=== PATIENT | male | born 1950 | race Caucasian/White ===

== ENCOUNTER → 2025-02-17 12:41 | Outpatient (REF) | payer MEDICARE, SELFPAY ==
--- NOTE | 2025-01-29 07:54 | PN.DIAED02 ---
Referral
DSME Class Series Code: [id number]
Referred For: Diabetes Self-Management Training, Management of Diabetes During , Medical Nutrition Therapy, Self-Blood Glucose Monitoring, Long-Term Complication Instruction, Accute Complication Instruction, Continuous Glucose Monitoring,
Medication management, Care Coordination, Disease Management
PHI Release Authorization Form Signed: Yes
Demographic
Patient's primary language-: Thai (e11.65)
Education: Advanced college degree
Occupation: Vocational/Trade
Hours Worked/Week: 20-40
Shift: Day
- Social
Primary Support Person: Self
Primary Care Takers: Self
Living Arrangements: Self
- Learning Methods
Preferred Method: Hands-on demonstration
Barriers to Learning: None
Glycemic Control
- Blood Glucose Monitoring Assessment
Blood glucose monitoring at home: Yes
Monitor Brands: Other (CGM)
Frequency: >4x per day
Time: fasting, before breakfast, after breakfast, before lunch, after lunch, before dinner, after dinner, bedtime, 12 AM, 3 AM
- Hyperglycemia Assessment
Experiences Hyperglycemia: Yes (FREQUENT THIRST)
Frequency: 1-3x per week
- Hypoglycemia Assessment
Patient carries glucose source: No
Patient experiences hypoglycemia: No
- Blood Glucose Monitoring Results
Source: Other (CGM)
- Hemoglobin A1c
Date: 08/10/24
A1C Percentage (%): 9.7
Medical History of Diabetes
Family Diabetes History: Other (AUNT)
Previous Diabetes Education: No
Previous visit with Dietitian: No
Complications/Comorbidity/Specialist: Heart Disease, Hypertension (Valsartan 80 mg QD, Metoprolol 50 mg QD, Spironolactone 25 mg QD), Hyperlipidemia (Rosuvastatin 10 mg QD), Metabolic (T2D: Glargine 26 units QD, Aspart B 16, L 18, D10)
Measures
- Anthropometrics
Height: 6 ft 1 in
Actual Weight: 218 lb
- Blood Pressure / Pulse
Blood pressure: 110/60
- Diabetes Management
Medical Management for Diabetes: Complete physical exam (12/19/2024), Dental exam (12/10/2020 pending new dentures), Dilated eye exam (01/10/2025)
Self-Care
- Tobacco Usage
Do you now, or have you ever smoked?: Never smoked
- Alcohol & Drugs Usage
Drinks Alcohol: Yes
Amount/day: Social Occasions (4/year)
- Meals & Dining
Meals & Dining: Patient skips meals: Yes, Food Intolerance / Allergy: No, Cultural / Christian Dietary Needs: No
Primary Food Shingle Packer: Self
Primary Quantitative Consultant: Self
Dining Out Frequency: Daily (no kitchen access, eats take out daily)
- Physical Activity
Physical Limitation: No
Patient participates in physical Activity: No (work schedule interferes with time for exercise)
- Patient-Self Assessment
Diabetes Knowledge: Fair
Feelings About Diabetes: Adaptation
General Health: Good
Importance of Health: Extremely
Stress Level: High
Diabetes Interferes With:: Work/school
Barriers to Diabetes Management: Schedule/time
Depression Survey Score: 2
- Diabetes Identification
Carries Diabetes Identification: No
Diabetes Identification Information Provided: Yes
Care Plan
- Education Needs
Patient Education Needs: Diabetes disease process, Chronic complications, Acute complications, Medication, Monitoring, Physical activity, Psychosocial Adjustment, Nutritional management, Goal setting & problem solving
Recommended Diabetes Training Program based on assessment: Outpatient Diabetes Education Program
- Plan of Care
Plan of Care:
01/28/2025
Met with participant today for registration and initiation of Diabetes Self-management. He was previously diagnosed witn prediabetes and was inpatient with [facility] and his glucose reading was 400 mg/dL. He is unsure of his current HbA1c, labs ordered
through his PCP. He has an appointment with [facility] on 01/31/2025.
He currently takes long acting and short acting insulin, wears a CGM. We reviewed his CGM data and his 7 day glucose average is 192, time in range is 59%, and glucose management indicator is 7.7%. I provided education that his glucose average is
elevated, the goals for time in range is >= 70%, and A1c goal is generally less than 7% unless otherwise indicated from provider.
His morning glucose readings are 170-190, he eats twice a day and skips breakfast. He shares an apartment with other men and has limited access to a kitchen, most of his diet is take out. He works long hours and even during breaks he is sedentary
due to work duties. Since his diagnosis he cut out additional sugar, eats more salads, and purchases 'Healthy Choice' meals.
We reviewed complications of diabetes, fasting and 2 hour post prandial glucose goals, signs and symptoms of hyperglycemia, signs and symptoms of hypoglycemia, and hypoglycemia protocol. We discussed exercise recommendations of at least 30 minutes
per day to help lower glucose levels. He will try to fit in exercise throughout his day.
I reviewed and provided diabetes management booklet, insurance billing code and advised he contact his health plan to discuss coverage and cost.
He has phone # for office if additional needs arise prior to class.
--- NOTE | 2025-01-29 09:15 | PN.DIAED04 ---
Education Record
- Education Record
Class Attended: Other
DSME Class Series Code: [id number]
Instructor: Registered Nurse (Destiny Pollock RN)
Pre-Program Knowledge: Needs review / Assistance
Pre-Test Score (%): 79
Goals
- Goal 1
Being Active: Exercise 30 minutes-5 times per week
Goals To Be Evaluated: Exercise 30 mins-5x/week
- Goal 2
Healthy Eating: Make better food choices
Goals To Be Evaluated: Make better food choices
- Goal 3
Monitoring: Follow monitoring schedule
Goals To Be Evaluated: Follow monitoring times
--- NOTE | 2025-02-19 13:11 | PN.DIAED14 ---
This is to notify you that your patient with diabetes, ADELINA LOYA ( 1950), has enrolled in our diabetes self-management classes that are being held at [facility].
These classes will include an introduction to diabetes, diet, medication, exercise and prevention of complications. At the end of our class series, you will receive a report of your patient's participation and progress for your records.
Please contact me at the Diabetes Center, , if there is any particular information regarding your patient that might be helpful to me.
Sincerely,
Dylan BERG-LINDA, [facility]
--- NOTE | 2025-02-19 13:30 | PN.DIAED04 ---
Education Record
- Education Record
Class Attended: Class 1
DSME Class Series Code: [id number]
Instructor: Registered Nurse (Destiny Pollock RN)
Class Curriculum:
Outpatient Diabetes Education Program:
Class 1 (120 minutes)
Describe the diabetes disease process and treatment options
Diabetes management
Develop personal strategies to promote health and behavior change
Integrate psychosocial adjustment for daily living
Monitor blood glucose and other parameters. Interpret and use the results for self-management decision making
Prevent, detect, and treat acute complications
Class Length (mins): 120
Post-Class 1 Test Score (%): 100
== END ==
LOC: DES 12:41
PROVIDERS: ATTENDING PHYSICIAN Family Medicine Sports Medicine
DX: E11.65 Type 2 diabetes mellitus with hyperglycemia (principal)
CPT/HCPCS: 99078

== ENCOUNTER → 2025-02-24 09:49 | Outpatient (REF) | payer MEDICARE, SELFPAY ==
--- NOTE | 2025-02-25 10:04 | PN.DIAED04 ---
Education Record
- Education Record
Class Attended: Class 2
DSME Class Series Code: [id number]
Instructor: Registered Dietitian (Danita Alexander, RD, LDN, CDE)
Class Curriculum:
Outpatient Diabetes Education Program:
Class 2 (120 minutes)
Incorporate nutritional management into lifestyle
Understanding nutritional value
Understanding carbohydrate counting
Class Length (mins): 120
== END ==
LOC: DES 09:49
PROVIDERS: ATTENDING PHYSICIAN Family Medicine Sports Medicine
DX: E11.65 Type 2 diabetes mellitus with hyperglycemia (principal)
CPT/HCPCS: 99078

== ENCOUNTER → 2025-03-03 10:39 | Outpatient (REF) | payer MEDICARE, SELFPAY ==
--- NOTE | 2025-03-05 11:55 | PN.DIAED04 ---
Education Record
- Education Record
Class Attended: Class 3
DSME Class Series Code: [id number]
Instructor: Registered Dietitian (Danita Alexander, RD, LDN, CDE)
Class Curriculum:
Outpatient Diabetes Education Program:
Class 3 (120 minutes)
Incorporate nutritional management into lifestyle
Class Length (mins): 120
Post-Class 2 & 3 Test Score (%): 81
== END ==
LOC: DES 10:39
PROVIDERS: ATTENDING PHYSICIAN Family Medicine Sports Medicine
DX: E11.65 Type 2 diabetes mellitus with hyperglycemia (principal)
CPT/HCPCS: 99078

== ENCOUNTER → 2025-03-10 09:11 | Outpatient (REF) | payer MEDICARE, SELFPAY ==
--- NOTE | 2025-03-12 11:40 | PN.DIAED04 ---
Education Record
- Education Record
Class Attended: Class 4
DSME Class Series Code: [id number]
Instructor: Nurse Practitioner (MORENA Moreno)
Class Curriculum:
Outpatient Diabetes Education Program:
Class 4 (120 minutes)
Develop personal strategies to promote health and behavior change
Incorporate physical activity into lifestyle
Utilize medications safety for maximum therapeutic effectiveness
Understand different medication/insulin mechanism of action
Preparing for travel
Class Length (mins): 120
Post-Class 4 Test Score (%): 100
== END ==
LOC: DES 09:11
PROVIDERS: ATTENDING PHYSICIAN Family Medicine Sports Medicine
DX: E11.65 Type 2 diabetes mellitus with hyperglycemia (principal)
CPT/HCPCS: 99078

== ENCOUNTER → 2025-03-17 09:24 | Outpatient (REF) | payer MEDICARE, SELFPAY ==
--- NOTE | 2025-03-19 12:35 | PN.DIAED04 ---
Education Record
- Education Record
Class Attended: Class 5
DSME Class Series Code: [id number]
Instructor: Registered Nurse (Destiny Pollock RN)
Class Curriculum:
Outpatient Diabetes Education Program:
Class 5 (120 minutes)
Prevent, detect, and treat acute complications
Prevent, detect, and treat chronic complications through risk reduction
Develop personal strategies to address psychosocial issues and concerns
Development of diabetes self-management support plan
Letter to physician with DSMS plan attached sent
Class Length (mins): 120
Post-Program Knowledge: Demonstrates competency
Post-Test Score (%): 88
Post-Program Assessment
- Post-Program Assessment
Actual Weight: 218 lb
Blood pressure: 130/70
Post-Program Depression Survey Score: 6
Reviewing Previous Goals?: Yes
Pre-Program Depression Survey Score: 2
- Goals 1 Evaluation
Goals To Be Evaluated: Exercise 30 mins-5x/week
- Goals 2 Evaluation
Goals To Be Evaluated: Make better food choices
- Goals 3 Evaluation
Goals To Be Evaluated: Follow monitoring times
--- NOTE | 2025-03-19 12:35 | PN.DIAED16 ---
This is to notify you that your patient with diabetes, ADELINA LOYA ( 1950), has attended the entire series of Diabetes Self-Management Education Classes.
Class 1 (120 minutes): Diabetes Overview - monitoring, stress/psychosocial adjustment, support, goal setting
Class 2 (120 minutes): Meal Planning - serving sizes, menu plans
Class 3 (120 minutes): Introduction to Carbohydrate Counting, Analyzing Food Labels
Class 4 (120 minutes): Medication, Exercise and Activity
Class 5 (120 minutes): Sick Day Management, Strategies to Reduce Complications, Problem Solving, Resources
The following behavioral goals were identified:
Exercise 30 mins-5x/week
Make better food choices
Follow monitoring times
A follow-up call will be made within three to six months to evaluate attainment of these goals and to check post-program Hemoglobin A1c and overall progress. All class participants are encouraged to contact me if I can be any further assistance in
learning how to manage their diabetes.
Sincerely,
Dylan BERG-,[facility]
== END ==
LOC: DES 09:24
PROVIDERS: ATTENDING PHYSICIAN Family Medicine Sports Medicine
DX: E11.65 Type 2 diabetes mellitus with hyperglycemia (principal)
CPT/HCPCS: 99078